=== PATIENT | male | born 1970 ===

== ENCOUNTER → 2017-06-08 | Outpatient (CLI) | payer OTHER | END | disposition home or self-care (01) | LOC: LAB SHORT 09:57 → PLD 09:57 | DX: L83 Acanthosis nigricans (principal) | CPT/HCPCS: 88305; 88312 ==

== ENCOUNTER 2020-04-21 11:27 | Day surgery (SDC) | payer OTHER ==
[~2020-04-21] VITALS: Ht 177.8 cm; Wt 83.7 kg
[~2020-04-21 11:27] MED LIST: EPIPEN 2-P0.3 MG/0.1 IM; SKYRIZI75 MG/0.81 SC
== END 2020-04-21 13:02 | disposition home or self-care (01) ==
LOC: ORSCSDS 11:27
PROVIDERS: Surgery
PROC: 0DJD8ZZ Inspection of Lower Intestinal Tract, Via Natural or Artificial Opening Endoscopic (ICD-10-PCS; principal; 2020-04-21 12:30)
DX: Z12.11 Encounter for screening for malignant neoplasm of colon (principal); Z79.899 Other long term (current) drug therapy
CPT/HCPCS: J2704; J7120